=== PATIENT | male | born 1960 | race Caucasian/White ===

== ENCOUNTER 2018-10-15 16:49 | Inpatient (IN) | payer MEDICARE, MEDICAID ==
[2018-10-15] MEDS ORDERED: SODIUM CHLORIDE 0.9% 1000ML 1,000 ML IV ONE ×2 (17:15→19:08)
[2018-10-15] MEDS ORDERED: ONDANSETRON HCL 4 MG/2 ML SOL IV ONE (17:16)
[2018-10-15] MEDS ORDERED: ONDANSETRON HCL 4 MG/2 ML SOL ONE (17:22)
[2018-10-15 17:30] LABS: BASOPHILS % (AUTO) 0 % (0-3); EOSINOPHILS % (AUTO) 0 % (0-9); HEMATOCRIT 50 % (39-53); HEMOGLOBIN 15.4 gm/dl (13.5-17.7); LYMPHOCYTES % (AUTO) 9.2 % (10-50); MEAN CORPUSCULAR HEMOGLOBIN 25.6 pg (27.0-32.0); MEAN CORPUSCULAR VOLUME 83 fL (80-100); NEUTROPHILS % (AUTO) 84.2 % (37-80)
[2018-10-15 17:40] LABS: ALBUMIN 2.4 gm/dl (3.4-5.0); BILIRUBIN,TOTAL 0.7 mg/dl (0.2-1.0); CREATININE 1.47 mg/dl (0.80-1.30); TOTAL PROTEIN 5.4 gm/dl (6.4-8.2)
[2018-10-15 17:41] LABS: CALCIUM 6.4 mg/dl (8.5-10.1); POTASSIUM 1.5 mMol/L (3.5-5.1)
[2018-10-15] MEDS ORDERED: POTASSIUM CHLORIDE 2 MEQ/ML 60 MEQ, LIDOCAINE HCL 1% MDV 2 ML in SODIUM CHLORIDE 0.9% 1... IV ONE ×2 (17:42→19:44)
[2018-10-15] MEDS ORDERED: POTASSIUM CHLORIDE 10 MEQ TER PO ONE (17:45)
[2018-10-15] MEDS ORDERED: POTASSIUM CHLORIDE 10 MEQ TER ONE (17:46)
[2018-10-15] MEDS ORDERED: POTASSIUM CHLORIDE 2 MEQ/ML SOL IV ONE (17:46)
[2018-10-15] MEDS ORDERED: LIDOCAINE HCL 1% MPF 30 SOL ONE (17:48)
[2018-10-15] MEDS ORDERED: HYDROMORPHONE 1 MG/ML SYRINGE IV ONE (18:44)
[2018-10-15] MEDS ORDERED: HYDROMORPHONE 1 MG/ML SYRINGE ONE (18:45)
[2018-10-15] MEDS ORDERED: CALCIUM GLUCONATE 10% 1,000 MG in SODIUM CHLORIDE 0.9% 100 ML 100 ML IV ONE (18:52)
[2018-10-15] MEDS ORDERED: CALCIUM GLUCONATE 10% 100 MG/ML SOL IV ONE (19:17)
[2018-10-15 19:31] LABS: APPEARANCE,URINE Clear; BILIRUBIN,URINE NEGATIVE (NEGATIVE); COLOR,URINE Yellow; GLUCOSE, URINE (UA) NEGATIVE (NEGATIVE); KETONES,URINE NEGATIVE (NEGATIVE); LEUKOCYTE ESTERASE ,URINE NEGATIVE (NEGATIVE); NITRATE,URINE NEGATIVE (NEGATIVE); OCCULT BLOOD,URINE 2+ (NEG-TRACE); UROBILINOGEN,URINE 0.2 (0.2-1.0 EU)
[2018-10-15 19:36] LABS: BACTERIA NEGATIVE (< 1+); CRYSTALS NEGATIVE (0-3 AVE/HPF); EPITHELIAL CELLS 0-2 (SQUAMOUS); RBC,URINE 0-2 (0-3AV/HPF); WBC,URINE NEG (0-5AV/HPF)
[2018-10-15] MEDS: CIPROFLOXACIN HCL 500 MG TAB PO SCH (20:45)
[2018-10-16] MEDS ORDERED: HYDROMORPHONE 1 MG/ML SYRINGE IV ONE (00:40)
[2018-10-16] MEDS ORDERED: LIDOCAINE HCL 1% MPF 30 SOL ONE ×3 (00:56→17:23)
[2018-10-16] MEDS ORDERED: POTASSIUM CHLORIDE 2 MEQ/ML SOL IV ONE ×3 (00:56→17:23)
[2018-10-16] MEDS ORDERED: POTASSIUM CHLORIDE 10 MEQ TER PO ONE (01:17)
[2018-10-16] MEDS ORDERED: ALBUTEROL/IPRATROPIUM 1 VIAL SOL NEB PRN (01:47)
[2018-10-16] MEDS: CIPROFLOXACIN HCL 500 MG TAB PO SCH ×2 (06:41→19:32)
[2018-10-16 07:25] LABS: CALCIUM 6.1 mg/dl (8.5-10.1); CARBON DIOXIDE 16.4 mEq/L (21-32); CREATININE 1.1 mg/dl (0.80-1.30); POTASSIUM 2.1 mMol/L (3.5-5.1)
[2018-10-16 07:26] LABS: BASOPHILS % (AUTO) 0 % (0-3); EOSINOPHILS % (AUTO) 1 % (0-9); HEMATOCRIT 40 % (39-53); HEMOGLOBIN 12.7 gm/dl (13.5-17.7); LYMPHOCYTES % (AUTO) 13.5 % (10-50); MEAN CORPUSCULAR HEMOGLOBIN 26.3 pg (27.0-32.0); MEAN CORPUSCULAR HGB CONC 32.1 gm/dl (32.0-36.0); MEAN CORPUSCULAR VOLUME 82 fL (80-100); MONOCYTES % (AUTO) 7.3 % (0-12); NEUTROPHILS % (AUTO) 77.8 % (37-80)
[2018-10-16] MEDS ORDERED: POTASSIUM CHLORIDE 2 MEQ/ML 60 MEQ, LIDOCAINE HCL 1% MDV 2 ML in SODIUM CHLORIDE 0.9% 1... IV ONE ×2 (07:36→16:17)
[2018-10-16] MEDS ORDERED: POTASSIUM CHLORIDE 10 MEQ TER PO SCH ×3 (07:45→16:30)
[2018-10-16] MEDS: ENOXAPARIN 40 MG SOL SC SCH (08:39)
[2018-10-16] MEDS: SODIUM CHLORIDE 0.9% FLUSH 10 ML SOL IV PRN (08:48)
[2018-10-16] MEDS: SODIUM CHLORIDE 0.9% 1000ML 1,000 ML IV SCH ×2 (08:48→19:53)
[2018-10-16] MEDS: NICOTINE 21 MG PATCH TD SCH (14:37)
[2018-10-17] MEDS: SODIUM CHLORIDE 0.9% 1000ML 1,000 ML IV SCH (06:24)
[2018-10-17] MEDS: CIPROFLOXACIN HCL 500 MG TAB PO SCH (06:24)
[2018-10-17 07:20] LABS: HEMATOCRIT 39 % (39-53); HEMOGLOBIN 12.8 gm/dl (13.5-17.7); MEAN CORPUSCULAR HEMOGLOBIN 26.5 pg (27.0-32.0); MEAN CORPUSCULAR HGB CONC 32.5 gm/dl (32.0-36.0)
[2018-10-17 07:26] LABS: CARBON DIOXIDE 11.6 mEq/L (21-32); CREATININE 0.97 mg/dl (0.80-1.30)
[2018-10-17 07:29] LABS: POTASSIUM 2.1 mMol/L (3.5-5.1)
[2018-10-17 08:00] LABS: MAGNESIUM 1.1 mg/dl (1.8-2.4)
[2018-10-17 08:03] LABS: BAND NEUTROPHILS % (MANUAL) 5 %; BASOPHILS % (MANUAL) 0 % (0-3); EOSINOPHILS % (MANUAL) 0 % (0-9); LYMPHOCYTES % (MANUAL) 8 % (10-50); MEAN CORPUSCULAR VOLUME 81 fL (80-100); MONOCYTES % (MANUAL) 3 % (0-12); NEUTROPHILS % (MANUAL) 84 % (37-80)
[2018-10-17 08:04] LABS: ANISOCYTOSIS SLIGHT AMT; POIKILOCYTOSIS SLIGHT AMT; TARGET CELLS OCCASIONAL
[2018-10-17] MEDS: POTASSIUM PHOS IV SCH (09:14)
[2018-10-17] MEDS: DEXTROSE IV SCH (09:14)
[2018-10-17] MEDS: MAGNESIUM OXIDE 400 MG TAB PO SCH ×4 (09:14→23:06)
[2018-10-17] MEDS: CALCIUM CARBONATE 500 MG TAB PO SCH ×2 (09:25→23:06)
[2018-10-17] MEDS: ENOXAPARIN 40 MG SOL SC SCH (09:31)
[2018-10-17] MEDS ORDERED: ONDANSETRON 4 MG ODT BU PRN (10:05)
[2018-10-17] MEDS ORDERED: HYDROMORPHONE 1 MG/ML SYRINGE IV ONE (14:19)
[2018-10-17] MEDS: NICOTINE 21 MG PATCH TD SCH (14:31)
[2018-10-17 14:42] LABS: CARBON DIOXIDE 18.4 mEq/L (21-32); CREATININE 1.05 mg/dl (0.80-1.30)
[2018-10-17 14:44] LABS: CALCIUM 6.1 mg/dl (8.5-10.1); POTASSIUM 2.4 mMol/L (3.5-5.1)
[2018-10-17 14:54] LABS: BASOPHILS % (AUTO) 0 % (0-3); EOSINOPHILS % (AUTO) 1 % (0-9); HEMATOCRIT 44 % (39-53); MEAN CORPUSCULAR HEMOGLOBIN 25.6 pg (27.0-32.0); MEAN CORPUSCULAR HGB CONC 31.1 gm/dl (32.0-36.0); MEAN CORPUSCULAR VOLUME 82 fL (80-100); MONOCYTES % (AUTO) 6.2 % (0-12); NEUTROPHILS % (AUTO) 74.4 % (37-80)
[2018-10-17 14:58] LABS: HEMOGLOBIN 13.5 gm/dl (13.5-17.7)
[2018-10-17 15:11] LABS: APPEARANCE,URINE Clear; BILIRUBIN,URINE NEGATIVE (NEGATIVE); COLOR,URINE Yellow; GLUCOSE, URINE (UA) NEGATIVE (NEGATIVE); KETONES,URINE NEGATIVE (NEGATIVE); LEUKOCYTE ESTERASE ,URINE NEGATIVE (NEGATIVE); NITRATE,URINE NEGATIVE (NEGATIVE); OCCULT BLOOD,URINE 1+ (NEG-TRACE); PH,URINE 5.5; UROBILINOGEN,URINE 0.2 (0.2-1.0 EU)
[2018-10-17 15:25] LABS: BACTERIA TRACE (< 1+); CRYSTALS 1+ AMORPHOUS URATES (0-3 AVE/HPF); EPITHELIAL CELLS 0-1 (SQUAMOUS); RBC,URINE 0-2 (0-3AV/HPF); WBC,URINE 0-1 (0-5AV/HPF)
[2018-10-17] MEDS: HYDROMORPHONE 1 MG/ML SYRINGE IV PRN ×3 (17:47→23:58)
[2018-10-17] MEDS: SODIUM CHLORIDE 0.9% FLUSH 10 ML SOL IV PRN ×3 (17:47→23:58)
[2018-10-17 20:26] LABS: CARBON DIOXIDE 17.6 mEq/L (21-32); CREATININE 1.03 mg/dl (0.80-1.30); MAGNESIUM 1.2 mg/dl (1.8-2.4)
[2018-10-17 20:28] LABS: CALCIUM 5.9 mg/dl (8.5-10.1); POTASSIUM 2.2 mMol/L (3.5-5.1)
[2018-10-17] MEDS ORDERED: MAGNESIUM SULFATE 1 GM/2 ML SOL IV ONE (21:06)
[2018-10-17] MEDS ORDERED: CALCIUM GLUCONATE 10% 1,000 MG in SODIUM CHLORIDE 0.9% 100 ML 100 ML IV ONE (21:07)
[2018-10-17] MEDS ORDERED: POTASSIUM CHLORIDE 2 MEQ/ML 60 MEQ, LIDOCAINE HCL 1% MDV 2 ML in SODIUM CHLORIDE 0.9% 1... IV ONE (21:09)
[2018-10-17] MEDS ORDERED: MAGNESIUM SULFATE 2 GM in NS 100 ML IV ONE (21:30)
[2018-10-17] MEDS ORDERED: LIDOCAINE HCL 1% MPF 30 SOL ONE (22:07)
[2018-10-17] MEDS ORDERED: POTASSIUM CHLORIDE 2 MEQ/ML SOL IV ONE (22:08)
[2018-10-17] MEDS ORDERED: MAGNESIUM SULFATE 5 GM/10 ML SOL ONE (22:09)
[2018-10-18] MEDS ORDERED: CALCIUM GLUCONATE 10% 100 MG/ML SOL IV ONE ×2 (00:49→18:21)
[2018-10-18] MEDS ORDERED: SODIUM CHLORIDE 0.9% 100 ML 100 ML IV ONE ×2 (00:49→18:22)
[2018-10-18] MEDS: SODIUM CHLORIDE 0.9% FLUSH 10 ML SOL IV PRN ×3 (01:07→15:09)
[2018-10-18] MEDS: DEXTROSE IV SCH (02:41)
[2018-10-18] MEDS: POTASSIUM PHOS IV SCH (02:41)
[2018-10-18 03:04] LABS: BILIRUBIN,TOTAL 0.3 mg/dl (0.2-1.0); CARBON DIOXIDE 15.1 mEq/L (21-32); CREATININE 0.95 mg/dl (0.80-1.30); MAGNESIUM 1.8 mg/dl (1.8-2.4); TOTAL PROTEIN 4.6 gm/dl (6.4-8.2)
[2018-10-18 03:06] LABS: CALCIUM 6.1 mg/dl (8.5-10.1); POTASSIUM 2.9 mMol/L (3.5-5.1)
[2018-10-18] MEDS: HYDROMORPHONE 1 MG/ML SYRINGE IV PRN (03:26)
[2018-10-18] MEDS ORDERED: DEXTROSE IV SCH (03:45)
[2018-10-18] MEDS ORDERED: POTASSIUM PHOS IV SCH (03:45)
[2018-10-18 07:25] LABS: CARBON DIOXIDE 17.1 mEq/L (21-32); CREATININE 0.93 mg/dl (0.80-1.30); MAGNESIUM 1.7 mg/dl (1.8-2.4); POTASSIUM 3.3 mMol/L (3.5-5.1)
[2018-10-18 07:29] LABS: CALCIUM 6.4 mg/dl (8.5-10.1)
[2018-10-18] MEDS: CALCIUM CARBONATE 500 MG TAB PO SCH ×2 (08:21→21:06)
[2018-10-18] MEDS: ENOXAPARIN 40 MG SOL SC SCH (08:29)
[2018-10-18] MEDS: K PHOS PO SCH ×3 (12:00→19:37)
[2018-10-18] MEDS: NICOTINE 21 MG PATCH TD SCH (14:17)
[2018-10-18 15:24] LABS: CARBON DIOXIDE 13.3 mEq/L (21-32); CREATININE 0.91 mg/dl (0.80-1.30); MAGNESIUM 1.4 mg/dl (1.8-2.4)
[2018-10-18 15:28] LABS: CALCIUM 5.8 mg/dl (8.5-10.1)
[2018-10-18] MEDS ORDERED: CALCIUM GLUCONATE 10% 1,000 MG in SODIUM CHLORIDE 0.9% 100 ML 100 ML IV ONE (16:56)
[2018-10-18] MEDS ORDERED: MAGNESIUM SULFATE 1 GM/2 ML SOL IV ONE (17:25)
[2018-10-18] MEDS ORDERED: MAGNESIUM OXIDE 400 MG TAB PO ONE (18:00)
[2018-10-18] MEDS ORDERED: LIDOCAINE HCL 1% MPF 30 SOL ONE (18:23)
[2018-10-18] MEDS ORDERED: POTASSIUM CHLORIDE 2 MEQ/ML SOL IV ONE (18:25)
[2018-10-18] MEDS: POTASSIUM CHLORIDE 2 MEQ/ML 60 MEQ, LIDOCAINE HCL 1% MDV 2 ML in SODIUM CHLORIDE 0.9% 1... IV ONE ×2 (18:34→19:28)
[2018-10-18] MEDS ORDERED: MAGNESIUM SULFATE 5 GM/10 ML SOL ONE (20:45)
[2018-10-18] MEDS: K PHOS 500 MG PO SCH (21:05)
[2018-10-18] MEDS: MAGNESIUM OXIDE 400 MG TAB PO SCH (21:09)
[2018-10-19 07:51] LABS: CARBON DIOXIDE 19.8 mEq/L (21-32); CREATININE 0.75 mg/dl (0.80-1.30); MAGNESIUM 1.5 mg/dl (1.8-2.4)
[2018-10-19 07:56] LABS: POTASSIUM 2.9 mMol/L (3.5-5.1)
[2018-10-19 07:57] LABS: CALCIUM 5.6 mg/dl (8.5-10.1)
[2018-10-19 08:21] VITALS: BP 121/61; PULSE 102; RESP 20; TEMP 98.8; O2SAT 96
[2018-10-19] MEDS ORDERED: LEVOTHYROXINE SODIUM 50 MCG TAB PO SCH (09:00)
[2018-10-19] MEDS: ENOXAPARIN 40 MG SOL SC SCH (09:07)
[2018-10-19] MEDS: MAGNESIUM OXIDE 400 MG TAB PO SCH (09:09)
[2018-10-19] MEDS: CALCIUM CARBONATE 500 MG TAB PO SCH (09:10)
[2018-10-19] MEDS: K PHOS 500 MG PO SCH (09:11)
[2018-10-20 07:59] LABS: *PARATHYROID HORMONE NO MIN 382.9 pg/mL (14.0-72.0)
[2018-10-20 08:00] LABS: *FREE T4 (FREE THYROXINE) < 0.40 ng/dL (0.74-1.51)
== END 2018-10-19 10:25 | disposition home or self-care (01) | DRG 642 ==
LOC: ED 16:49 → ACUTE CARE 19:25 → UNDOADMIN 19:25 → ACUTE CARE 20:00
PROVIDERS: ADMIT Family Medicine; ATTEND Family Medicine
DX: K52.9 Noninfective gastroenteritis and colitis, unspecified (principal); E87.6 Hypokalemia; E86.0 Dehydration; E83.39 Other disorders of phosphorus metabolism; E83.42 Hypomagnesemia; E83.51 Hypocalcemia; R10.9 Unspecified abdominal pain; R11.2 Nausea with vomiting, unspecified
CPT/HCPCS: 36415; 71045; 74177; 80048; 80053; 81001; 81050; 82272; 83735; 84100; 84132; 84443; 85007; 85025; 85027; 93005; 93012; 96365; 96366; 96374; 96375; 99070; 99222; 99285; J0610; J1650; J2405; J3475; J3480; Q9967; A9270-GY; J1170; J2001